=== PATIENT | male | born 1945 | race Hispanic/Latino ===

== ENCOUNTER 2017-07-09 06:39 | Day surgery (SDC) | payer MEDICARE, OTHER ==
[2017-07-09] MEDS ORDERED: Propofol 10 mg/ml Inj (20 ML) ONE (07:41)
[2017-07-09] MEDS ORDERED: Lactated Ringer's 1,000 ML IV ONE ×2 (07:52)
--- NOTE | 2017-07-09 08:04 | CP.SDSHP ---
Same Day Surgery H & P - History Proposed Procedure: COLONSCOPY Pre-Op Diagnosis: SEE NOTES - Previous Medical/Surgical History Cardiac: Hypertension Misc: Other Pain: 2.Mild Pain - Allergies Allergies: Allergies No Known Allergies Allergy (Verified 07/08/17 14:28) - Physical Exam General Appearance: N Vital Signs: Vital Signs 07/09/17 07:00 Temperature 98.9 F Pulse Rate 62 Respiratory 19 Rate Blood Pressure 135/77 O2 Sat by Pulse 97 Oximetry Mental Status: Alert & Oriented x3 Neuro: WNL Heart: Other Lungs: WNL GI: WNL - {Optional Preform as Required} Breast: WNL Abdomen: Other Rectal: WNL Integument: WNL : Other Ortho: WNL ENT: WNL - Impression Pt. Evaluated Today:Candidate for Anesthesia & Procedure: Yes - Date & Time Time: 08:04 Short Stay Discharge - Short Stay Discharge Admitting Diagnosis/Reason for Visit: COLON SCREENING Disposition: HOME/ ROUTINE
[2017-07-09 08:44] VITALS: TEMP 98.6
[2017-07-09 08:45] VITALS: PULSE 57
[2017-07-09] MEDS ORDERED: Belladonna-Phenobarbital PO ONE (08:50)
[2017-07-09 09:16] VITALS: RESP 17
[2017-07-09 12:14] VITALS: BP 140/89; O2SAT 97
== END 2017-07-09 12:16 | disposition home or self-care (01) ==
LOC: C.ENDO 06:39
PROVIDERS: ATTEND Specialist
DX: Z12.11 Encounter for screening for malignant neoplasm of colon (principal); K55.20 Angiodysplasia of colon without hemorrhage; K64.8 Other hemorrhoids; I10 Essential (primary) hypertension
CPT/HCPCS: 45380; 88305; J2704; J7120